=== PATIENT | female | born 1965 | race Caucasian/White ===

== ENCOUNTER 2021-10-27 20:44 | Emergency (ER) | payer BC ==
[~2021-10-27] VITALS: Ht 165.1 cm; Wt 59.0 kg
[~2021-10-27 20:44] MED LIST: ASPIR-LOW81 MG PO
[2021-10-27] MEDS ORDERED: AMOX TR-K CLV1 EAC1 PO (21:54)
== END 2021-10-27 22:17 | disposition home or self-care (01) ==
LOC: ED 20:44
DX: J32.9 Chronic sinusitis, unspecified (principal); H66.93 Otitis media, unspecified, bilateral; Z79.82 Long term (current) use of aspirin
CPT/HCPCS: 99282